=== PATIENT | male | born 1950 | race Caucasian/White ===

== ENCOUNTER 2019-01-29 18:35 | Emergency (ER) | payer OTHER ==
[2019-01-29] MEDS ORDERED: Sodium Chloride 0.9% 10 ML Syringe FLUSH PRN (19:34)
[2019-01-29] MEDS ORDERED: Ibuprofen 600 MG Tab PO ONE (19:39)
--- NOTE | 2019-01-29 19:39 | EDM.PDOC ---
ED HPI GENERAL MEDICAL PROBLEM - General Chief Complaint: Fever Stated Complaint: FEVER HIP HURTS Time Seen by Provider: 01/29/19 19:28 Source of Information: Reports: Patient, Family, RN Notes Reviewed History Limitations: Reports: No Limitations - History of Present Illness INITIAL COMMENTS - FREE TEXT/NARRATIVE: 68-year-old gentleman presents to emergency department today complaint of fever , he is postop day 20 right hip states been doing well with the hip had a checkup 5 days prior with orthopedic surgeon did well unfortunately 3 days ago started developing fever and pain and hip now it's difficult for him to ambulate noticed some redness over the surgical wound is well Right Hip Pain Score (Numeric/FACES): 7 - Related Data Allergies Allergy/AdvReac Type Severity Reaction Status Date / Time colestipol Allergy Other Verified 01/29/19 19:06 pravastatin Allergy Other Verified 01/29/19 19:06 simvastatin Allergy Other Verified 01/29/19 19:06 Home Meds: Home Meds Fish Oil 1,000 mg PO DAILY 06/30/14 [History] Carvedilol [Coreg] 3.125 mg PO BID 10/22/14 [History] Losartan [Cozaar] 25 mg PO DAILY 10/22/14 [History] Ranitidine [Zantac] 1 tab PO BID PRN 10/22/14 [History] atorvaSTATin [Lipitor] 40 mg PO BEDTIME 10/22/14 [History] Aspirin [Halfprin] 81 mg PO DAILY 10/23/14 [History] *Pain Pill 01/29/19 [History] Allopurinol [Zyloprim] 200 mg PO DAILY 01/29/19 [History] Ferrous Sulfate 325 mg PO BID 01/29/19 [History] Folic Acid 1 mg PO DAILY 01/29/19 [History] Past Medical History HEENT History: Reports: Cataract, Hard of Hearing, Impaired Vision Cardiovascular History: Reports: CAD, High Cholesterol, Hypertension, MD, Stents , Other (See Below) Other Cardiovascular History: rhythm changes with anthesia Gastrointestinal History: Reports: GERD Musculoskeletal History: Reports: Gout - Infectious Disease History Infectious Disease History: Reports: Chicken Pox, Measles, Mumps - Past Surgical History Cardiovascular Surgical History: Reports: Coronary Artery Stent Musculoskeletal Surgical History: Reports: Hip Replacement Social & Family History - Tobacco Use Smoking Status *Q: Never Smoker - Caffeine Use Caffeine Use: Reports: Coffee - Alcohol Use Date of Last Drink: 01/08/19 - Recreational Drug Use Recreational Drug Use: No ED ROS GENERAL - Review of Systems Review Of Systems: See Below Constitutional: Reports: Fever, Chills HEENT: Reports: No Symptoms Respiratory: Reports: No Symptoms Cardiovascular: Reports: No Symptoms GI/Abdominal: Reports: No Symptoms : Reports: No Symptoms Musculoskeletal: Reports: Joint Pain (Right hip pain) Skin: Reports: Pallor, Erythema, Wound Neurological: Reports: No Symptoms ED EXAM, SEPSIS - Physical Exam Exam: See Below Text/Narrative:: Examination of the right hip surgical wound is clean dry and intact however there is erythematous that is spreading over the surgical wound approximately 3- 4 cm on each side it is warm to the touch there is no specific tenderness to palpation however he does complain of pain with any flexion and extension internal or external rotation of that hip Exam Limited By: No Limitations General Appearance: Alert, WD/WN, No Apparent Distress Respiratory/Chest: No Respiratory Distress, Lungs Clear, Normal Breath Sounds, No Accessory Muscle Use, Chest Non-Tender Cardiovascular: Regular Rate, Rhythm, No Murmur GI/Abdominal Exam: Soft, Non-Tender Course - Vital Signs Last Recorded V/S: Last Vital Signs Temp 95.5 F 01/29/19 21:48 Pulse 81 01/29/19 21:42 Resp 21 H 01/29/19 20:21 BP 104/51 L 01/29/19 21:42 Pulse Ox 95 01/29/19 21:42 - Orders/Labs/Meds Orders: Active Orders 24 hr Category Date Time Status Peripheral IV Care [RC] . DIRECTED Care 01/29/19 19:34 Active Vital Signs [RC] Q1H Care 01/29/19 19:32 Active CULTURE BLOOD [BC] Urgent Lab 01/29/19 19:45 Received CULTURE BLOOD [BC] Urgent Lab 01/29/19 19:55 Received Lactated Ringers [Ringers, Lactated] 1,000 ml Med 01/29/19 19:45 Active IV ASDIRECTED Sodium Chloride 0.9% [Saline Flush] Med 01/29/19 19:34 Active 10 ml FLUSH ASDIRECTED PRN cefTAZidime [Fortaz] 2 gm Med 01/29/19 19:45 Active Sodium Chloride 0.9% [Normal Saline] 50 ml IV Q8H Blood Culture x2 Reflex Set [OM.PC] Urgent Oth 01/29/19 19:32 Ordered Peripheral IV Insertion Adult [OM.PC] Urgent Oth 01/29/19 19:34 Ordered Medication Orders Ceftazidime 2 gm/ Sodium (Chloride) 50 mls @ 100 mls/hr IV Q8H [facility] Last Admin: 01/29/19 20:15 Dose: 100 mls/hr Lactated Ringer's (Ringers, Lactated) 1,000 mls @ 999 mls/hr IV ASDIRECTED STEPHEN Last Admin: 01/29/19 20:15 Dose: 999 mls/hr Sodium Chloride (Saline Flush) 10 ml FLUSH ASDIRECTED PRN PRN Reason: Keep Vein Open Last Admin: 01/29/19 20:16 Dose: 10 ml Labs: Laboratory Tests 01/29/19 01/29/19 01/29/19 Range/Units 19:32 19:45 19:45 WBC 14.1 H (4.5-11.0) K/uL RBC 3.56 L (4.30-5.90) M/uL Hgb 10.4 L (12.0-15.0) g/dL Hct 33.8 L (40.0-54.0) % MCV 95 (80-98) fL MCH 29 (27-31) pg MCHC 31 L (32-36) % Plt Count 276 (150-400) K/uL Neut % (Auto) 85 H (36-66) % Lymph % (Auto) 7 L (24-44) % [place] % (Auto) 8 H (2-6) % Eos % (Auto) 0 L (2-4) % Baso % (Auto) 0 (0-1) % Sodium 135 L (140-148) mmol/L Potassium 3.8 (3.6-5.2) mmol/L Chloride 100 (100-108) mmol/L Carbon Dioxide 28 (21-32) mmol/L Anion Gap 10.8 (5.0-14.0) mmol/L BUN 28 H (7-18) mg/dL Creatinine 1.7 H (0.8-1.3) mg/dL Est Cr Clr Drug Dosing 41.75 mL/min Estimated GFR (MDRD) 40 L (>60) Glucose 119 H (74-106) mg/dL Lactic Acid 1.8 (0.4-2.0) mmol/L Calcium 8.2 L (8.5-10.1) mg/dL Total Bilirubin 0.8 (0.2-1.0) mg/dL AST 33 (15-37) U/L ALT 18 (12-78) U/L Alkaline Phosphatase 101 (46-116) U/L C-Reactive Protein 23.06 H (0.0-0.3) mg/dL Total Protein 7.3 (6.4-8.2) g/dL Albumin 3.0 L (3.4-5.0) g/dL Globulin 4.3 H (2.3-3.5) g/dL Albumin/Globulin Ratio 0.7 L (1.2-2.2) Urine Color Urine Appearance Urine pH (4.5-8.0) Ur Specific [place] (1.008-1.030) Urine Protein (NEGATIVE) mg/dL Urine Glucose (UA) (NEGATIVE) mg/dL Urine Ketones (NEGATIVE) mg/dL Urine Occult Blood (NEGATIVE) Urine Nitrite (NEGAITVE) Urine Bilirubin (NEGATIVE) Urine Urobilinogen (NORMAL) mg/dL Ur Leukocyte Esterase (NEGATIVE) Urine RBC (0-5) Urine WBC (0-5) Ur Epithelial Cells Amorphous Sediment Urine Bacteria Urine Mucus 01/29/19 Range/Units 20:24 WBC (4.5-11.0) K/uL RBC (4.30-5.90) M/uL Hgb (12.0-15.0) g/dL Hct (40.0-54.0) % MCV (80-98) fL MCH (27-31) pg MCHC (32-36) % Plt Count (150-400) K/uL Neut % (Auto) (36-66) % Lymph % (Auto) (24-44) % [place] % (Auto) (2-6) % Eos % (Auto) (2-4) % Baso % (Auto) (0-1) % Sodium (140-148) mmol/L Potassium (3.6-5.2) mmol/L Chloride (100-108) mmol/L Carbon Dioxide (21-32) mmol/L Anion Gap (5.0-14.0) mmol/L BUN (7-18) mg/dL Creatinine (0.8-1.3) mg/dL Est Cr Clr Drug Dosing mL/min Estimated GFR (MDRD) (>60) Glucose (74-106) mg/dL Lactic Acid (0.4-2.0) mmol/L Calcium (8.5-10.1) mg/dL Total Bilirubin (0.2-1.0) mg/dL AST (15-37) U/L ALT (12-78) U/L Alkaline Phosphatase (46-116) U/L C-Reactive Protein (0.0-0.3) mg/dL Total Protein (6.4-8.2) g/dL Albumin (3.4-5.0) g/dL Globulin (2.3-3.5) g/dL Albumin/Globulin Ratio (1.2-2.2) Urine Color [place] Urine Appearance Cloudy Urine pH 5.0 (4.5-8.0) Ur Specific [place] 1.020 (1.008-1.030) Urine Protein 30 H (NEGATIVE) mg/dL Urine Glucose (UA) Normal (NEGATIVE) mg/dL Urine Ketones 15 H (NEGATIVE) mg/dL Urine Occult Blood Moderate (NEGATIVE) Urine Nitrite Negative (NEGAITVE) Urine Bilirubin Small (NEGATIVE) Urine Urobilinogen 1 (NORMAL) mg/dL Ur Leukocyte Esterase Negative (NEGATIVE) Urine RBC 5-10 H (0-5) Urine WBC 5-10 H (0-5) Ur Epithelial Cells Few Amorphous Sediment Moderate Urine Bacteria Rare Urine Mucus Moderate Meds: Medications Generic Name Dose Route Start Last Admin Trade Name Freq PRN Reason Stop Dose Admin Ceftazidime 2 gm/ Sodium 50 mls @ 100 mls/hr 01/29/19 19:45 01/29/19 20:15 Chloride IV 100 mls/hr Q8H STEPHEN Administration Lactated Ringer's 1,000 mls @ 999 mls/hr 01/29/19 19:45 01/29/19 20:15 Ringers, Lactated IV 999 mls/hr ASDIRECTED STEPHEN Administration Sodium Chloride 10 ml 01/29/19 19:34 01/29/19 20:16 Saline Flush FLUSH 10 ml ASDIRECTED PRN Administration Keep Vein Open Discontinued Medications Generic Name Dose Route Start Last Admin Trade Name Freq PRN Reason Stop Dose Admin Ibuprofen 600 mg 01/29/19 19:39 01/29/19 20:15 Motrin PO 01/29/19 19:40 600 mg ONETIME ONE Administration Departure - Departure Time of Disposition: 21:54 Disposition: DC/Tfer to Acute Hospital 02 Condition: Fair Clinical Impression: Septic joint Qualifiers: Septic arthritis location: hip Septic arthritis organism: due to unspecified organism Laterality: right Qualified Code(s): M00.9 - Pyogenic arthritis, unspecified - Discharge Information Referrals: PCP,None [Primary Care Provider] - Forms: ED Department Discharge - My Orders Last 24 Hours: My Active Orders 01/29/19 19:32 Vital Signs [RC] Q1H Blood Culture x2 Reflex Set [OM.PC] Urgent 01/29/19 19:34 Peripheral IV Care [RC] . DIRECTED Sodium Chloride 0.9% [Saline Flush] 10 ml FLUSH ASDIRECTED PRN Peripheral IV Insertion Adult [OM.PC] Urgent 01/29/19 19:45 CULTURE BLOOD [BC] Urgent Lactated Ringers [Ringers, Lactated] 1,000 ml IV ASDIRECTED cefTAZidime [Fortaz] 2 gm Sodium Chloride 0.9% [Normal Saline] 50 ml IV Q8H 01/29/19 19:55 CULTURE BLOOD [BC] Urgent - Assessment/Plan Last 24 Hours: My Active Orders 01/29/19 19:32 Vital Signs [RC] Q1H Blood Culture x2 Reflex Set [OM.PC] Urgent 01/29/19 19:34 Peripheral IV Care [RC] . DIRECTED Sodium Chloride 0.9% [Saline Flush] 10 ml FLUSH ASDIRECTED PRN Peripheral IV Insertion Adult [OM.PC] Urgent 01/29/19 19:45 CULTURE BLOOD [BC] Urgent Lactated Ringers [Ringers, Lactated] 1,000 ml IV ASDIRECTED cefTAZidime [Fortaz] 2 gm Sodium Chloride 0.9% [Normal Saline] 50 ml IV Q8H 01/29/19 19:55 CULTURE BLOOD [BC] Urgent Plan: Assessment Acuity = acute Site and laterality = probable septic joint right hip Etiology = probable bacterial cause Manifestations = pain with ambulation Location of injury = Home Lab values = WBC elevated 14.1 consistent leukocytosis, hemoglobin low at 10.4 consistent chromic anemia creatinine elevated 1.3 consistent chronic renal failure stage G IIIB CRP elevated 23.06 lactic acid within normal limits urinalysis reveals 5-10 rbc's and 5-10 wbc's of uncertain significance x-ray of the hip reveals no acute process Plan called discussed case with Dr. Chandler at 21:30 from the [facility] she kindly accepted the patient in transport 2 g of Fortaz has been initiated as well as blood cultures prior to antibiotics he'll be transported via EMS ground This note was dictated using CU[employer] voice recognition software please call with any questions on syntax or grammar.
[2019-01-29] MEDS ORDERED: cefTAZidime Pentahydrate 2 GM in Sodium Chloride 0.9% 50 ML IV SCH (19:45)
[2019-01-29] MEDS ORDERED: Lactated Ringers 1,000 ML IV SCH (19:45)
--- NOTE | 2019-01-29 20:29 | CRLCR ---
INDICATION: Postoperative fever. Postop day 20. TECHNIQUE: Two views of the right hip. FINDINGS: Right hip arthroplasty. The components are adequately aligned and well seated. No skeletal erosion. No soft tissue gas. IMPRESSION: Right hip arthroplasty. The components are adequately aligned and well seated. Dictated by Orion Story MD @ Jan 29 2019 8:27PM Signed by Dr. Orion Story @ Jan 29 2019 8:27PM
== END 2019-01-29 22:22 ==
LOC: JP.ED 18:35
DX: M00.9 Pyogenic arthritis, unspecified (principal); I10 Essential (primary) hypertension; I25.2 Old myocardial infarction; M10.9 Gout, unspecified; I25.10 Atherosclerotic heart disease of native coronary artery without angina pectoris; Z79.82 Long term (current) use of aspirin; Z95.5 Presence of coronary angioplasty implant and graft; Z88.8 Allergy status to other drugs, medicaments and biological substances
CPT/HCPCS: 36415; 73502; 80053; 81001; 83605; 85025; 86140; 87040; 87804; 96365; 99284; A9270; J0713; J7050; J7120; 99285

== ENCOUNTER 2019-08-02 12:03 | Emergency (ER) | payer OTHER ==
--- NOTE | 2019-08-02 12:25 | EDM.PDOC ---
ED HPI GENERAL MEDICAL PROBLEM - General Chief Complaint: Chest Pain Stated Complaint: SHORTNESS OF BREATH Time Seen by Provider: 08/02/19 12:30 Source of Information: Reports: Patient, Old Records, RN History Limitations: Reports: No Limitations - History of Present Illness INITIAL COMMENTS - FREE TEXT/NARRATIVE: 68 yo male [place] patient presents with WINSTON that has been progressive for over a month. Initially it was intermittent. Last night at work it got so bad it made it hard to work. Has been worked up at the [facility] in [place] and all they could come up with was that his Vit. D level was low. He has no orthopnea. No fever, chest pain or leg swelling. Has never smoked. Does have known CAD with a previous ME. Sx's worse with exertion. 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 Onset: Gradual Onset Date: 07/07/19 Duration: Week(s): (4+), Getting Worse Location: Reports: Chest Quality: Reports: Other (no pain) Severity: Mild Improves with: Reports: Rest Worsens with: Reports: Movement Context: Reports: Other (See HPI) Associated Symptoms: Reports: Shortness of Breath. 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 (see below) (none) Chest Pain Score (Numeric/FACES): 5 - Related Data Allergies Allergy/AdvReac Type Severity Reaction Status Date / Time colestipol Allergy Other Verified 08/02/19 12:39 pravastatin Allergy Other Verified 08/02/19 12:39 simvastatin Allergy Other Verified 08/02/19 12:39 Home Meds: Home Meds Fish Oil 1,000 mg PO DAILY 06/30/14 [History] Carvedilol [Coreg] 3.125 mg PO BID 10/22/14 [History] Losartan [Cozaar] 12.5 mg PO DAILY 10/22/14 [History] Ranitidine [Zantac] 1 tab PO BID PRN 10/22/14 [History] atorvaSTATin [Lipitor] 40 mg PO BEDTIME 10/22/14 [History] Aspirin [Halfprin] 81 mg PO DAILY 10/23/14 [History] Allopurinol [Zyloprim] 200 mg PO DAILY 01/29/19 [History] *Cephalexin 1 tab PO QID 08/02/19 [History] Cholecalciferol (Vitamin D3) [Vitamin D3] 1 tab PO ASDIRECTED 08/02/19 [History] Levofloxacin [Levaquin] 500 mg PO DAILY #7 tablet 08/02/19 [Rx] Past Medical History HEENT History: Reports: Cataract, Hard of Hearing, Impaired Vision Cardiovascular History: Reports: CAD, High Cholesterol, Hypertension, ME, Stents , Other (See Below) Other Cardiovascular History: rhythm changes with anthesia Gastrointestinal History: Reports: GERD Musculoskeletal History: Reports: Gout - Infectious Disease History Infectious Disease History: Reports: Chicken Pox, Measles, Mumps - Past Surgical History Cardiovascular Surgical History: Reports: Coronary Artery Stent Musculoskeletal Surgical History: Reports: Hip Replacement Social & Family History - Caffeine Use Caffeine Use: Reports: Coffee ED ROS GENERAL - Review of Systems Review Of Systems: See Below Constitutional: Reports: No Symptoms HEENT: Reports: No Symptoms Respiratory: Reports: Shortness of Breath Cardiovascular: Reports: Dyspnea on Exertion. Denies: Claudication, Edema, Orthopnea GI/Abdominal: Reports: No Symptoms : Reports: No Symptoms Musculoskeletal: Reports: No Symptoms Skin: Reports: No Symptoms Neurological: Reports: No Symptoms Psychiatric: Reports: No Symptoms ED EXAM, GENERAL - Physical Exam Exam: See Below Exam Limited By: No Limitations General Appearance: Alert, WD/WN, No Apparent Distress Eye Exam: Bilateral Eye: Normal Inspection Ears: Normal External Exam, Normal Canal, Hearing Grossly Normal Ear Exam: Bilateral Ear: Auricle Normal, Canal Normal Nose: Normal Inspection, No Blood Throat/Mouth: Normal Inspection, Normal Lips, Normal Oropharynx, Normal Voice, No Airway Compromise Head: Atraumatic, Normocephalic Neck: Normal Inspection Respiratory/Chest: No Respiratory Distress, No Accessory Muscle Use, Rales ( both bases). No: Decreased Breath Sounds, Wheezing, Stridor, Accessory Muscle Use, Retractions, Splinting, Prolonged Expiration Cardiovascular: Regular Rate, Rhythm, No Edema GI/Abdominal: Normal Bowel Sounds, Soft, No Distention, Tender (epigastric pressure). No: Distended, Guarding, Rigid, Rebound, Abnormal Bowel Sounds Back Exam: Normal Inspection. No: CVA Tenderness (R), CVA Tenderness (L) Extremities: Normal Inspection, Normal Range of Motion, Non-Tender, No Pedal Edema Neurological: Alert, Oriented, CN II-XII Intact, Normal Cognition, No Motor/ Sensory Deficits Psychiatric: Normal Affect, Normal Mood Skin Exam: Warm, Dry, Intact, Normal Color, No Rash EKG INTERPRETATION EKG Date: 08/02/19 Time: 12:10 Rhythm: NSR Rate (Beats/Min): 81 [place]: Normal P-Wave: Present QRS: Normal ST-T: Normal QT: Normal Comparison: Change From Previous EKG (ST elevation in anterior leads no longer present.) Course - Vital Signs Last Recorded V/S: Last Vital Signs Temp 36.6 C 08/02/19 12:36 Pulse 74 08/02/19 15:10 Resp 22 H 08/02/19 15:10 BP 166/94 H 08/02/19 15:10 Pulse Ox 96 08/02/19 15:10 - Orders/Labs/Meds Orders: Active Orders 24 hr Category Date Time Status Cardiac Monitoring [RC] .As Directed Care 08/02/19 12:26 Active EKG Documentation Completion [RC] ASDIRECTED Care 08/02/19 12:25 Active Levofloxacin/Dextrose 5%-Water [Levaquin in D5W 750 MG/ Med 08/02/19 14:35 Active 150 ML] 750 mg Premix Bag 1 bag IV ONETIME Sodium Chloride 0.9% [Normal Saline] 1,000 ml Med 08/02/19 13:30 Active IV ASDIRECTED EKG 12 Lead [EK] Routine Ther 08/02/19 12:25 Ordered Medication Orders Sodium Chloride (Normal Saline) 1,000 mls @ 150 mls/hr IV ASDIRECTED [facility] Last Admin: 08/02/19 14:13 Dose: 150 mls/hr Levofloxacin/Dextrose 750 mg/ (Premix) 150 mls @ 100 mls/hr IV ONETIME ONE Stop: 08/02/19 16:04 Last Admin: 08/02/19 14:59 Dose: 100 mls/hr Labs: Laboratory Tests 08/02/19 08/02/19 08/02/19 Range/Units 12:38 12:54 12:54 WBC 7.7 (4.5-11.0) K/uL RBC 4.61 (4.30-5.90) M/uL Hgb 13.1 D (12.0-15.0) g/dL Hct 41.7 (40.0-54.0) % MCV 91 (80-98) fL MCH 28 (27-31) pg MCHC 31 L (32-36) % Plt Count 261 (150-400) K/uL D-Dimer, Quantitative 1470 H (0.0-400.0) ng/mL Sodium 139 L (140-148) mmol/L Potassium 4.6 (3.6-5.2) mmol/L Chloride 105 (100-108) mmol/L Carbon Dioxide 26 (21-32) mmol/L Anion Gap 12.6 (5.0-14.0) mmol/L BUN 16 (7-18) mg/dL Creatinine 1.2 (0.8-1.3) mg/dL Est Cr Clr Drug Dosing 59.14 mL/min Estimated GFR (MDRD) 60 (>60) Glucose 112 H (74-106) mg/dL Calcium 8.3 L (8.5-10.1) mg/dL C-Reactive Protein (0.0-0.3) mg/dL 08/02/19 Range/Units 12:54 WBC (4.5-11.0) K/uL RBC (4.30-5.90) M/uL Hgb (12.0-15.0) g/dL Hct (40.0-54.0) % MCV (80-98) fL MCH (27-31) pg MCHC (32-36) % Plt Count (150-400) K/uL D-Dimer, Quantitative (0.0-400.0) ng/mL Sodium (140-148) mmol/L Potassium (3.6-5.2) mmol/L Chloride (100-108) mmol/L Carbon Dioxide (21-32) mmol/L Anion Gap (5.0-14.0) mmol/L BUN (7-18) mg/dL Creatinine (0.8-1.3) mg/dL Est Cr Clr Drug Dosing mL/min Estimated GFR (MDRD) (>60) Glucose (74-106) mg/dL Calcium (8.5-10.1) mg/dL C-Reactive Protein 1.52 H (0.0-0.3) mg/dL Meds: Medications Generic Name Dose Route Start Last Admin Trade Name Freq PRN Reason Stop Dose Admin Sodium Chloride 1,000 mls @ 150 mls/hr 08/02/19 13:30 08/02/19 14:13 Normal Saline IV 150 mls/hr ASDIRECTED STEPHEN Administration Levofloxacin/Dextrose 750 mg/ 150 mls @ 100 mls/hr 08/02/19 14:35 08/02/19 14 :59 Premix IV 08/02/19 16:04 100 mls/hr ONETIME ONE Administration Discontinued Medications Generic Name Dose Route Start Last Admin Trade Name Cherie PRN Reason Stop Dose Admin Azithromycin 500 mg 08/02/19 14:32 Zithromax PO 08/02/19 14:33 ONETIME ONE Sodium Chloride 80 mls @ 3.5 mls/sec 08/02/19 13:23 08/02/19 13:39 Normal Saline IV 08/02/19 13:24 3.5 mls/sec ONETIME ONE Administration Ceftriaxone Sodium 1 gm/ 50 mls @ 100 mls/hr 08/02/19 14:31 Sodium Chloride IV 08/02/19 15:00 ONETIME ONE Iopamidol 100 ml 08/02/19 13:30 08/02/19 13:40 Isovue-370 (76%) IV 08/02/19 13:31 100 ml . DIRECTED STEPHEN Administration Sodium Chloride 10 ml 08/02/19 13:23 08/02/19 13:39 Saline Flush FLUSH 08/02/19 13:24 10 ml ONETIME ONE Administration - Radiology Interpretation Free Text/Narrative:: CXR-IMPRESSIONS: 1. Segmental airspace infiltrates are present in the right upper lung zone, suspicious for pneumonia. 2. On the lateral view, there is a nodular density measuring 1 cm over the cardiac silhouette. Follow-up two-view chest radiograph in 3 months is recommended to document stability or resolution. 3. Small bilateral pleural effusions are present with minimal bibasilar atelectasis. Dictated by Zachery Eckert MD @ 08/02/2019 1:19:15 PM CTA chest-IMPRESSION: 1. No pulmonary embolism. 2. Right upper lobe pneumonia. 3. Bilateral pleural effusions, right greater than left. 4. Coronary artery atherosclerosis. Please note that all CT scans at this facility use dose modulation, iterative reconstruction, and/or weight-based dosing when appropriate to reduce radiation dose to as low as reasonably achievable. Dictated by Narciso Moore MD @ Aug 02 2019 2:15PM CT Results Date: 08/02/19 Departure - Departure Time of Disposition: 16:05 Disposition: Home, Self-Care 01 Condition: Fair Clinical Impression: Pneumonia Qualifiers: Pneumonia type: due to unspecified organism Laterality: right Lung location: upper lobe of lung Qualified Code(s): J18.1 - Lobar pneumonia, unspecified organism Prescriptions: Levofloxacin [Levaquin] 500 mg PO DAILY #7 tablet Referrals: eMrlyn Holman MD [Primary Care Provider] - Forms: ED Department Discharge Additional Instructions: Start Levaquin tomorrow and take as directed until gone. Drink ample fluids. Recheck with your provider next week, return here if you are worse. - My Orders Last 24 Hours: My Active Orders 08/02/19 12:25 EKG Documentation Completion [RC] ASDIRECTED EKG 12 Lead [EK] Routine 08/02/19 12:26 Cardiac Monitoring [RC] .As Directed 08/02/19 13:30 Sodium Chloride 0.9% [Normal Saline] 1,000 ml IV ASDIRECTED 08/02/19 14:35 Levofloxacin/Dextrose 5%-Water [Levaquin in D5W 750 MG/150 ML] 750 mg Premix Bag 1 bag IV ONETIME - Assessment/Plan Last 24 Hours: My Active Orders 08/02/19 12:25 EKG Documentation Completion [RC] ASDIRECTED EKG 12 Lead [EK] Routine 08/02/19 12:26 Cardiac Monitoring [RC] .As Directed 08/02/19 13:30 Sodium Chloride 0.9% [Normal Saline] 1,000 ml IV ASDIRECTED 08/02/19 14:35 Levofloxacin/Dextrose 5%-Water [Levaquin in D5W 750 MG/150 ML] 750 mg Premix Bag 1 bag IV ONETIME
--- NOTE | 2019-08-02 13:20 | CRLCR ---
INDICATION: Shortness of breath TECHNIQUE: Chest radiograph 2 views COMPARISON: None FINDINGS: Mediastinum: The mediastinum is normal in appearance. The heart silhouette is normal in size and morphology. Lung: On the lateral view, there is a nodular density measuring 1 cm over the cardiac silhouette. Segmental airspace infiltrates are present in the right upper lung zone, suspicious for pneumonia. Small bilateral pleural effusions are present with minimal bibasilar atelectasis. No pneumothorax is identified. Bone and Soft tissue: Unremarkable for age. IMPRESSIONS: 1. Segmental airspace infiltrates are present in the right upper lung zone, suspicious for pneumonia. 2. On the lateral view, there is a nodular density measuring 1 cm over the cardiac silhouette. Follow-up two-view chest radiograph in 3 months is recommended to document stability or resolution. 3. Small bilateral pleural effusions are present with minimal bibasilar atelectasis. Dictated by Zachery Eckert MD @ 08/02/2019 1:19:15 PM Dictated by: Zachery Eckert MD @ 08/02/2019 13:19:21 (Electronically Signed)
[2019-08-02] MEDS ORDERED: Sodium Chloride 0.9% 80 ML IV ONE (13:23)
[2019-08-02] MEDS ORDERED: Sodium Chloride 0.9% 10 ML Syringe FLUSH ONE (13:23)
[2019-08-02] MEDS ORDERED: Iopamidol 755 Mg/ML 100 ML Bottle IV SCH (13:30)
[2019-08-02] MEDS ORDERED: Sodium Chloride 0.9% 1,000 ML IV SCH (13:30)
[2019-08-02] MEDS ORDERED: cefTRIAXone 1 GM in Sodium Chloride 0.9% 50 ML IV ONE (14:31)
--- NOTE | 2019-08-02 14:31 | CRLCT ---
INDICATION: Shortness of breath. Hypoxia. Elevated D-dimer. TECHNIQUE: CT chest PE was acquired with 100 cc Isovue 370 IV contrast. COMPARISON: None. FINDINGS: Heart and vasculature: Contrast opacification of the pulmonary arterial tree is adequate. No sign of pulmonary embolism. Mild cardiomegaly. Great vessels are normal in caliber.Coronary artery atherosclerosis is present. Lungs and pleural: Airspace infiltrate is present in the right upper lobe and to a lesser extent right middle lobe. No other infiltrates or suspicious nodules. There are a few calcified granulomas. Moderate size right pleural effusion and small left pleural effusion. No pneumothorax. Lymph nodes/mediastinum: Mild right hilar lymphadenopathy. Thyroid gland is normal. Chest wall: No masses. Upper abdomen: Normal. Bones: Unremarkable for age. IMPRESSION: 1. No pulmonary embolism. 2. Right upper lobe pneumonia. 3. Bilateral pleural effusions, right greater than left. 4. Coronary artery atherosclerosis. Please note that all CT scans at this facility use dose modulation, iterative reconstruction, and/or weight-based dosing when appropriate to reduce radiation dose to as low as reasonably achievable. Dictated by Narciso Moore MD @ Aug 02 2019 2:15PM Signed by Dr. Narciso Moore @ Aug 02 2019 2:29PM
[2019-08-02] MEDS ORDERED: Azithromycin 250 MG Tab PO ONE (14:32)
[2019-08-02] MEDS ORDERED: Levofloxacin/Dextrose 5%-Water 750 MG in Premix Bag 1 BAG IV ONE (14:35)
== END 2019-08-02 16:48 | disposition home or self-care (01) ==
LOC: JP.ED 12:03
DX: J18.1 Lobar pneumonia, unspecified organism (principal); I10 Essential (primary) hypertension; I25.10 Atherosclerotic heart disease of native coronary artery without angina pectoris; I25.2 Old myocardial infarction; E78.5 Hyperlipidemia, unspecified; M10.9 Gout, unspecified; Z79.82 Long term (current) use of aspirin; Z95.5 Presence of coronary angioplasty implant and graft; Z88.8 Allergy status to other drugs, medicaments and biological substances; Z79.899 Other long term (current) drug therapy
CPT/HCPCS: 36415; 71046; 71275; 80048; 85027; 85379; 86140; 93005; 96361; 96365; 96366; 99285; J1956; J7030; Q9967; 99284

== ENCOUNTER 2023-02-21 19:46 | Emergency (ER) | payer SELFPAY ==
[2023-02-21] MEDS ORDERED: Albuterol/Ipratropium 3.0-0.5 MG/3 ML Neb Soln NEB ONE (20:47)
[2023-02-21 21:21] LABS: ESTIMATED GFR 34 mL/min (>60); TROPONIN I HIGH SENSITIVITY 19.6 pg/mL (<=60.3)
[2023-02-21 21:45] LABS: CORONAVIRUS COVID-19 NAA NEGATIVE (NEGATIVE)
== END 2023-02-21 22:30 | disposition home or self-care (01) ==
LOC: JP.ED 19:46
DX: J21.9 Acute bronchiolitis, unspecified (principal); I25.10 Atherosclerotic heart disease of native coronary artery without angina pectoris; I10 Essential (primary) hypertension; Z88.8 Allergy status to other drugs, medicaments and biological substances; Z79.899 Other long term (current) drug therapy; Z79.82 Long term (current) use of aspirin; Z20.822 Contact with and (suspected) exposure to COVID-19
CPT/HCPCS: 0241U; 36415; 71046; 80053; 83880; 84484; 85025; 94640; 99285; 94644; J7620